=== PATIENT | female | born 1995 | race Asian ===

== ENCOUNTER 2024-01-15 10:16 | Outpatient (CLI) | payer BC, SELFPAY ==
[2024-01-15 10:57] LABS: Hemoglobin 13.4 g/dL (12.0-15.0); Mean Corpuscular HGB Conc 34.4 g/dl (32-36); Mean Corpuscular Hemoglobin 33.5 pg (26-34); Mean Corpuscular Volume 97.5 fl (80-100); Mean Platelet Volume 9.9 fl (7.4-10.4); Platelet Count Result 230 k/mm3 (150-375); Red Cell Distribution Width 12.6 % (11.5-14.5); White Blood Count 9.8 K/mm3 (4.5-10.0)
[2024-01-17 07:35] LABS: Rapid Plasma Reagin Non-Reactive (NonReactive)
== END 2024-01-15 10:17 | disposition home or self-care (01) ==
LOC: ANHLAB 10:19
PROVIDERS: Visit Provider Obstetrics & Gynecology
DX: Z01.812 Encounter for preprocedural laboratory examination (principal)
CPT/HCPCS: 36415; 85027; 86592; 86850; 86900; 86901

== ENCOUNTER 2024-01-17 10:00 | Inpatient (IN) | payer BC, SELFPAY ==
[2024-01-17] VITALS (50 sets, daily range): BP systolic 87–114; BP diastolic 51–72; PULSE 56–90; RESP 16–22; TEMP 36.4–36.8; O2SAT 63–99; BMI 27.3
[2024-01-17] MEDS: ACETAMINOPHEN 500 MG TABLET 1000 MG PO (10:44)
[2024-01-17] MEDS: LACTATED RINGERS 1,000 ML 125 ML IV CONT ×2 (10:50→11:55)
--- NOTE | 2024-01-17 10:51 | LDADM ---
This patient, Akanksha Lee, was admitted to Labor/Delivery/Recovery 119 on 01/17/24 at 10:00. Plans for labor, pain management and were discussed with patient. Patient/family oriented to hospital policies and general routines including ID bracelet, bed and alarms, visiting hours, pain management, procedures, bathroom and other care routines, personal items, smoking policy, room service/diet and guest tray routines, security routines, and visiting hours. Patient/Family are encouraged to report perceived risks to care and to ask questions if they do not understand what they are told or what they should do. See OBIX for further documentation.
[2024-01-17 11:01] LABS: Glucose Point of Care 78 mg/dl (65-105)
[2024-01-17 11:46] LABS: HIV 1/2 Ab P24 Ag Result Negative (Negative)
--- NOTE | 2024-01-17 11:54 | WPDANESEPPF ---
Anes - Initial Pre Proc Eval Procedure: Operation Date: 01/17/24 12:00 Proposed Procedures p Section - Kwaku Coyne MD Date/Time: 01/17/24 11:54 Surgeon: Kwaku Coyne MD Pre Op Diagnosis: C/S Patient Data Age: 28 Gender: F Height: 1.57 m Weight: 68 kg Last Vital Signs Temp 36.4 C 01/17/24 10:44 Pulse 71 01/17/24 11:31 BP 106/69 01/17/24 11:31 Pulse Ox 96 01/17/24 10:41 O2 Del Method Room Air 01/17/24 10:46 Allergies Allergy/AdvReac Type Severity Reaction Status Date / Time magnesium citrate Allergy Hives Verified 12/28/23 15:24 Home Medications Medication Instructions Recorded Confirmed Type aspirin 81 mg tablet 81 mg PO DAILY 12/28/23 12/28/23 History golimumab 100 mg/mL subcutaneous 100 mg subcut MONTHLY 12/28/23 12/28/23 History pen injector (Simponi) vits no.126-ferrous fum 1 tablet PO DAILY 12/28/23 12/28/23 History 28 mg iron-folic acid 800 mcg tablet (Classic ) Laboratory Tests 01/17/24 01/17/24 10:15 10:47 POC Capillary Glucose 78 mg/dl (65-105) HIV 1&2 Ab/P24 Ag 4thGn Negative (Negative) Patient hx anesthesia problems: none Family hx anesthesia problems: none Results Review: All pre-operative results and documents have been reviewed as part of the pre-operative evaluation. [facility] Family History Family History Father Diabetes mellitus Social History Social History Smoking status: Never smoker Substance use: never Do You Feel Safe in your Home?: Yes Lack of Transportation: No Lack of Food: Never True Current Housing: I Have Housing Concerned About Future Housing: No Difficulty Paying Gas/Electric Bills: No Difficulty Paying for Meds: No Currently Unemployed: No Education: Don't Know Difficulty w/ Childcare or Family Care: No Spiritual care concerns: No Anes - Eval Final PreProcedure Day of Procedure 01/17/24 11:54 Patient weight: overweight Heart: regular rate and rhythm Lungs: clear to auscultation Airway: Mallampati scale class II Neurological: alert and oriented Last oral intake: >/= 8 hours ASA classification: III Emergent: no Anesthetic plan: proceed Anesthesia type and monitoring: regional spinal and standard monitoring Results Review: All pre-operative results and documents have been reviewed as part of the pre-operative evaluation. Informed Consent: The patient's anesthetic plan and its attendant risks and benefits were discussed with the patient/family/POA. Questions were solicited and answers provided to the satisfaction of the patient/family/POA.
[2024-01-17] MEDS: ONDANSETRON INJ 4 MG/2 ML VIAL IV PUSH ×2 (11:55→16:23)
[2024-01-17] MEDS: FAMOTIDINE 20 MG/2 ML VIAL IV PUSH (11:55)
--- NOTE | 2024-01-17 12:10 | PM.IMHP ---
H&P: HPI History of Present Illness Date/Time: 01/17/24 12:10 Chief Complaint: breech presentation Narrative: Patient is a 28 year old female who presents for primary c section indicated for persistent breech presentation. Risks and benefits of primary c section vs external cephalic version discussed previously with patient who desires primary c section. Her has been otherwise complicated by GDMA1, with good glycemic control. Reports good movement. Denies strong contractions, leakage of fluid or vaginal bleeding. Review of Systems Review of Systems: All systems reviewed & are unremarkable except as noted in HPI and below PMFSH Family History Family History Father Diabetes mellitus Social History Social History Smoking status: Never smoker Substance use: never Do You Feel Safe in your Home?: Yes Lack of Transportation: No Lack of Food: Never True Current Housing: I Have Housing Concerned About Future Housing: No Difficulty Paying Gas/Electric Bills: No Difficulty Paying for Meds: No Currently Unemployed: No Education: Don't Know Difficulty w/ Childcare or Family Care: No Spiritual care concerns: No Meds Home Medications and Allergies Home Medications Medication Instructions Recorded Confirmed Type aspirin 81 mg tablet 81 mg PO DAILY 12/28/23 12/28/23 History golimumab 100 mg/mL subcutaneous 100 mg subcut MONTHLY 12/28/23 12/28/23 History pen injector (Simponi) vits no.126-ferrous fum 1 tablet PO DAILY 12/28/23 12/28/23 History 28 mg iron-folic acid 800 mcg tablet (Classic ) Allergies Allergy/AdvReac Type Severity Reaction Status Date / Time magnesium citrate Allergy Hives Verified 12/28/23 15:24 Vital Signs Vital Signs - 24 hr 01/17/24 10:44 01/17/24 10:46 01/17/24 10:39 Temperature 97.6 F Pulse Rate Blood Pressure Pulse Oximetry 97 Oxygen Delivery Room Air 01/17/24 10:41 01/17/24 10:43 01/17/24 11:01 Temperature Pulse Rate 67 70 Blood Pressure 87/52 L 93/53 L Pulse Oximetry 96 Oxygen Delivery 01/17/24 11:16 01/17/24 11:31 Temperature Pulse Rate 70 71 Blood Pressure 105/61 106/69 Pulse Oximetry Oxygen Delivery Exam Const: General: comfortable and no acute distress HENMT: Mouth: Yes moist mucous membranes Neck: Neck: supple Resp: Effort & Inspection: normal respiratory effort Cardio: Rate: regular rate GI: Other: BSUS: breech presentation Extrem: General: normal to inspection Psych: Mental Status: mental status grossly normal Assessment and Plan Assessment and plan (1) Breech presentation: Code(s): O32.1XX0 - Maternal care for breech presentation, not applicable or unspecified Status: Acute Assessment and Plan: - risks and benefits of primary CS vs ECV discussed with patient previously and she desires to proceed with primary c section - NST reactive (2) GDM (gestational diabetes mellitus), class A1: Code(s): O24.410 - Gestational diabetes mellitus in , diet controlled Status: Acute Assessment and Plan: - good glycemic control throughout
[2024-01-17] MEDS: ceFAZolin 2 GM/D5W 50 ML 2 GM/50 ML BAG IVPB (12:13)
--- NOTE | 2024-01-17 12:14 | WPDHPUPDATE1 ---
History and Physical Update Update Date/Time: 01/17/24 12:14 History and Physical has been reviewed, including an updated exam of the patient. There are NO changes in the patient's condition. Risks, benefits, and alternatives have been discussed and questions answered. Patient agrees to proceed with procedure.
--- NOTE | 2024-01-17 12:16 | WPDHPUPDATE1 ---
History and Physical Update Update Date/Time: 01/17/24 12:16 History and Physical has been reviewed, including an updated exam of the patient. There are NO changes in the patient's condition. Risks, benefits, and alternatives have been discussed and questions answered. Patient agrees to proceed with procedure.
--- NOTE | 2024-01-17 13:48 | P.PCNOB_ITS ---
OB - Delivery Note Procedure Delivery date: 01/17/24 Pre-op diagnosis: Breech Presentation Post-op Diagnosis: Same Delivery monitor: External FHT Prior to decision for section, ACOG/SMFM labor guidelines were considered and discussed with the patient and staff. Decision made to proceed with the section.: Yes Procedure Performed: Primary Primary branch: low cervical, transverse Surgeon: Kwaku Coyne MD Anesthesia type: Epidural Description of Procedure/Findings: The patient was taken to the operating room where she was placed in the dorsal supine position with a leftward tilt. The electronic monitor was placed and heart rate was found to be reassuring. She was prepped and draped in the normal sterile fashion, and anesthesia was checked to be adequate. A Pfannenstiel skin incision was made with the scalpel and carried through to the underlying layer of fascia with the scalpel. The fascia was incised in the midline and the incision extended laterally with the Maharaj scissors. The superior aspect of the fascial incision was then grasped with Laurence clamps, elevated, and the underlying rectus muscles dissected off bluntly and with Maharaj scissors. Attention was then turned to the inferior aspect of the fascial incision, which in similar fashion was grasped, elevated, and the rectus muscles dissected off.? The rectus muscles were then in the midline, and the peritoneum entered bluntly. The peritoneal incision was extended superiorly and inferiorly with good visualization of the bladder. With the bladder blade providing retraction and visualization, the lower uterine segment was incised in a transverse fashion with the scalpel. The uterine incision was then extended laterally. The bladder blade was removed and the infant's breech was elevated and delivered atraumatically. The remainder of the infant was then delivered without difficulty. The umbilical cord was doubly clamped and cut. The infant was then handed off to the waiting nursing staff. Specimens then obtained as listed below. The placenta was then removed manually and the uterus was exteriorized and cleared of all clots and debris. The uterine incision was repaired with 0- Monocryl in a running, interlocked fashion. A second layer of the same suture was then used to imbricate the incision and ensure hemostasis. The posterior cul-de-sac was manually cleared of all clots and debris. The uterus was returned to the abdomen. The gutters were then manually cleared of all clots and debris.? The uterine incision was visualized to be hemostatic. The fascia was reapproximated with 0-Vicryl in a running fashion. The subcutaneous tissues were irrigated with warmed normal saline, and hemostasis was assured. The skin was closed with 4-0 monocryl in a running subcuticular stitch. Fundal pressure was applied to express remaining intrauterine clots and debris. The patient tolerated the procedure well. Sponge, lap, and needle counts were correct times three per nursing. The patient was taken to the recovery room in stable condition. Estimated Blood Loss: 225 Pathology: None sent Complications: No immediate complications Condition: Stable Disposition: Floor Thermal Baby Date of : 01/17/24 Gestational Age by Date: 39 Infant gender: Female Weight (pounds): 7 Weight (ounces): 3 presentation: vitaly breech position: Right Sacrum Anterior Placenta delivery description: Expressed Cord Vessel Description: 3 Vessels and Clamped/Cut
[2024-01-17] MEDS: OXYTOCIN 30 UNITS/NS 500 ML 30 UNITS/500 ML BAG 125 UNITS IV CONT (14:56)
[2024-01-17] MEDS: ACETAMINOPHEN 325 MG TABLET 650 MG PO (16:08)
[2024-01-17] MEDS: SIMETHICONE 80 MG TAB.CHEW PO (16:11)
[2024-01-17] MEDS: HYDROcodone/acetaminophen (*CRX) 10-325 MG TABLET 1 TAB PO (16:11)
[2024-01-17] MEDS: LIDOCAINE 5% PATCH 1 PATCH TRANSDERM (16:12)
[2024-01-17] MEDS: DOCUSATE SODIUM 100 MG CAPSULE PO (16:12)
--- NOTE | 2024-01-17 16:19 | OBPPTRN ---
288 Patient transferred to post room #288 via stretcher. Support person present. Oriented to unit, room, information board, rooming in, admission packet and security measures. Patient verbalizes understanding.
[2024-01-17] MEDS: DEXTROSE 5%/0.45% SOD CHL 1,000 ML 125 ML IV CONT (19:45)
[2024-01-18] MEDS: ACETAMINOPHEN 325 MG TABLET 650 MG PO ×4 (00:40→19:30)
[2024-01-18 04:32] LABS: Basophils Absolute Auto 0.1 K/mm3 (0.0-0.1); Basophils Percent Auto 0.3 % (0.2-1.2); Eosinophils Absolute Auto 0.1 K/mm3 (0-0.3); Eosinophils Percent Auto 0.3 % (0-4.4); Hematocrit 35.1 % (37.0-47.0); Hemoglobin 12.1 g/dL (12.0-15.0); Immature Granulocyte Absolute 0.09 K/mm3 (0.00-0.031); Immature Granulocyte Percent A 0.5 % (0-0.5); Lymphocytes Absolute Auto 1.61 K/mm3 (0.9-3.2); Lymphocytes Percent Auto 8.7 % (18.3-44.2); Mean Corpuscular HGB Conc 34.5 g/dl (32-36); Mean Corpuscular Hemoglobin 33.6 pg (26-34); Mean Corpuscular Volume 97.5 fl (80-100); Mean Platelet Volume 9.9 fl (7.4-10.4); Monocytes Absolute Auto 0.9 K/mm3 (0.1-0.6); Monocytes Percent Auto 4.9 % (2.6-8.5); Neutrophils Absolute Auto 15.7 K/mm3 (1.3-6.7); Neutrophils Percent Auto 85.3 % (45.5-73.1); Platelet Count Result 207 k/mm3 (150-375); Red Cell Distribution Width 12.5 % (11.5-14.5); White Blood Count 18.4 K/mm3 (4.5-10.0)
[2024-01-18 07:25] VITALS: BP 106/69; PULSE 74; RESP 16; TEMP 36.6; O2SAT 99
[2024-01-18] MEDS: SIMETHICONE 80 MG TAB.CHEW PO ×3 (08:02→15:50)
[2024-01-18] MEDS: MULTIVIT/MIN/PREN/FOL AC/IRON TABLET 1 TAB PO (08:02)
[2024-01-18] MEDS: DOCUSATE SODIUM 100 MG CAPSULE PO ×2 (08:02→15:49)
--- NOTE | 2024-01-18 09:43 | WPDANLDPN2 ---
Anes-Prog Note L&D Date/Time: 01/18/24 09:43 Comfortable throughout: section Neuraxial method: spinal Epidural/Spinal procedure site: clean & non-tender Neuro status: Neuro function grossly intact. Cardiovascular status: normal Respiratory status: normal Airway patency: baseline Mental status: baseline Post-Op hydration status: normal Vital Signs: Last Vital Signs Temp 97.9 F 01/18/24 07:25 Pulse 74 01/18/24 07:25 Resp 16 01/18/24 07:25 BP 106/69 01/18/24 07:25 Pulse Ox 99 01/18/24 07:25 O2 Del Method Room Air 01/17/24 15:45 Pain score (VAS): 0/10 I/O: Intake & Output 01/17/24 01/18/24 01/18/24 23:59 07:59 15:59 Intake Total 300 Output Total 100 1450 Balance 200 -1450 Post-procedural complaints: none Patient feedback: Patient satisfied with anesthetic care.
--- NOTE | 2024-01-18 09:43 | WPDANLDNPN2 ---
Anes-Prog Note L&D-Neuraxial Date/Time: 01/18/24 09:43 Neuraxial medications: intrathecal PF morphine Opiod-related complaints: none Patient feedback: Patient satisfied with post-operative pain management.
[2024-01-18 12:01] VITALS: BP 114/76; PULSE 77; RESP 16; TEMP 36.6; O2SAT 97
[2024-01-18] MEDS: HYDROcodone/acetaminophen (*CRX) 5-325 MG TABLET 1 TAB PO ×2 (13:59→23:45)
[2024-01-18] MEDS: LIDOCAINE 5% PATCH 1 PATCH TRANSDERM (15:50)
[2024-01-18 20:54] VITALS: BP 119/78; PULSE 73; RESP 20; TEMP 36.6; O2SAT 97
[2024-01-19] MEDS: ACETAMINOPHEN 325 MG TABLET 650 MG PO ×2 (04:12→10:19)
[2024-01-19] MEDS: DOCUSATE SODIUM 100 MG CAPSULE PO (07:07)
[2024-01-19] MEDS: SIMETHICONE 80 MG TAB.CHEW PO (07:07)
[2024-01-19] MEDS: HYDROcodone/acetaminophen (*CRX) 5-325 MG TABLET 1 TAB PO ×2 (07:07→13:56)
[2024-01-19 08:35] VITALS: BP 118/78; PULSE 86; RESP 16; TEMP 36.7; O2SAT 99
--- NOTE | 2024-01-19 13:21 | PM.OBPNVD ---
OB - PN: Subj Subjective Date/time seen: 01/19/24 13:21 Interval history: POD#2 s/p PLTCS for breech presentation Doing well, pain well controlled Passing flatus Voiding without issue Baby doing well Ready for discharge home today OB - PN: Obj Data Labs 01/18/24 03:56 OB - PN A/P Assessment and Plan (1) S/P : Code(s): Z98.891 - History of uterine scar from previous surgery Status: Acute Plan day: 2 Plan: routine care, discharge home and follow up 6 weeks Time Spent With Patient Time: Total time spent is greater than 50% in coordination of care (as documented) at patient's floor/unit and/or counseling patient: Review of Systems Review of Systems: All systems reviewed & are unremarkable except as noted in HPI and below Exam Const: General: comfortable and no acute distress Orientation/consciousness: patient oriented x3 Resp: Effort & Inspection: normal respiratory effort GI: GI Palp: Yes Soft to palpation and No Tenderness to palpation present (GI) Other: incision c/d/i
[2024-01-21 11:29] VITALS: BP 117/81; PULSE 66; RESP 18; TEMP 37.1; O2SAT 100
--- NOTE | 2024-01-21 16:27 | PM.OBDSVD ---
DS: Admitting Diagnosis Discharge Date 01/19/24 Admitting Diagnosis breech presentation, primary c section DS: Discharge Diagnosis Discharge Diagnosis (1) S/P : Code(s): Z98.891 - History of uterine scar from previous surgery Status: Acute OB - DS: Summary OB Procedures : None OB Procedures Intrapartum: low cervical, transverse OB Procedures: : None Peripartum Data Procedures: Procedures Operation Date: 01/17/24 12:00 Actual Procedure Side Surgeon p Section Kwaku Coyne MD Time Spent with Patient Time attestation: Total time spent providing and/or coordinating discharge services: Discharge Plan Discharge Attending physician on discharge: Kwaku Coyne Consulting providers: Kiel Jaramillo; Skinny Liu Jr. Discharging Clinician: Kwaku Coyne Patient Disposition: Home, Self-Care Activity: may shower, as tolerated and pelvic rest Diet: as tolerated Discharge Instructions: Education: Mom and Baby Guide Given to: Mother Follow-Up: Call your delivering provider's office for an appointment to be seen in: 1 Week Mom and baby should come to the [facility] for the follow-up appointment. Appointment Date/Time: January 21, 2024 at 11:00 am What to expect at your follow-up visit: Call [phone] if you are unable to keep your appointment time. BREAST CARE: * Wear a snug supportive bra. * For engorgement discomfort: Breast Feeding: * Apply warm moist washcloths * Express milk as needed to relieve engorgement * Wear loose clothing Bottle Feeding: * May apply ice packs * For sore nipples: * Identify correct latch-on * Apply warm moist washcloths before and after nursing * Air dry nipples after nursing * May apply Lansinoh cream to nipples ABDOMINAL INCISION: (if applicable) * Allow incision to air dry * Do NOT use lotions for powders on your incision * When showering, allow soap and water to run over the incision, but do not wash incision EPISIOTOMY/PERINEAL CARE: * Until bleeding stops, use your elana bottle after urinating * Change your pad frequently throughout the day * You may take sitz baths several times a day (fill your bathtub with warm water and soak for 20 minutes.) Do NOT bathe in the water * No tub baths until seen by your physician - You may shower ACTIVITY: * Rest as much as possible. * Do not exercise or lift anything heavier than your baby (such as laundry or other children.) * Avoid stairs or driving as much as possible. * Do not put anything into the vagina. No douching, tampons, or sexual activity until seen by physician. NOTIFY PHYSICIAN IF YOU HAVE ANY QUESTIONS OR IF ANY OF THE FOLLOWING SYMPTOMS OCCUR: * If your episiotomy or incision becomes red, swollen, or more painful than what you have experienced in the hospital. * If your vaginal bleeding becomes foul smelling. * If your vaginal bleeding becomes more heavy than a period or if your bleeding changes from pink to bright red. However, you may pass an occasional walnut-sized clot once or twice for the first week . * If you experience a sharp, shooting pain in you calves. * If you discover a hard, reddened area on your breast or if you experience flu-like symptoms. DIET: * Eat regular, well-balanced meals. * Drink plenty of fluids daily. If , drink to thirst. Patient Instructions: (DC) Stand Alone Forms: General Discharge Information Follow-up/Referrals: Kwaku Coyne MD [Physician] - 1 Week Discharge Medications: New hydrocodone-acetaminophen 5-325 mg Tablet 1 tablet PO Q3H PRN (Reason: Breakthrough Pain Rated 4-6) Qty: 18 0RF docusate sodium 100 mg Capsule 100 mg PO BID Qty: 60 0RF Continued Simponi 100 mg/mL Pen Injector 100 mg SUBCUT MONTHLY Cl
== END 2024-01-19 14:08 | disposition home or self-care (01) | DRG 788 ==
LOC: ANHLDR 10:15 → ANHOB2 15:39
PROVIDERS: Admitting Provider Obstetrics & Gynecology; Visit Provider Obstetrics & Gynecology
PROC: 10D00Z1 Extraction of Products of Conception, Low, Open Approach (ICD-10-PCS; CPT 59514; principal; 2024-01-17 12:00)
DX: O32.1XX0 Maternal care for breech presentation, not applicable or unspecified (principal); Z37.0 Single live birth; Z3A.39 39 weeks gestation of pregnancy; O24.429 Gestational diabetes mellitus in childbirth, unspecified control
CPT/HCPCS: 36415; 82948; 85025; 86703; A9270; G0432; J0690; J2274; J2371; J2405; J2590; J7120